=== PATIENT | female | born 2000 | race Caucasian/White ===

== ENCOUNTER 2024-08-17 10:25 | Emergency (ER) | payer OTHER, SELFPAY ==
--- NOTE | ~2024-08-17 | CT_ITS ---
EXAMINATION: CT ABDOMEN AND PELVIS WITH CONTRAST CLINICAL INFORMATION: Right lower quadrant pain. COMPARISON: None available. TECHNIQUE: Multidetector volumetric images were obtained from the superior aspect of the liver through the pubic symphysis following administration 85 mL of Omnipaque 350 intravenous contrast. Sagittal and coronal reformatted images were obtained on the technologist's workstation. Oral contrast: No This CT examination was performed using dose optimization techniques as appropriate, variously including the following: *Automated exposure control *Adjustment of mA and/or kV according to patient size (this includes techniques or standardized protocols for targeted exams where dose is matched to indication/reason for exam; i.e. extremities or head) *Use of iterative reconstruction technique DLP: 480 mGy-cm FINDINGS: LUNG BASES: Patchy right lower lobe interstitial and alveolar infiltrates. Left lung base appears clear. No pleural effusion identified. Heart normal in size. No pericardial effusion. LIVER, GALLBLADDER, AND BILIARY TREE: The liver appears unremarkable in size, shape, and attenuation. No focal hepatic lesion or biliary ductal dilatation is appreciated. Unremarkable appearance of the gallbladder. PANCREAS: Unremarkable SPLEEN: Unremarkable ADRENAL GLANDS: Unremarkable KIDNEYS AND URETERS: The kidneys appear unremarkable in size, shape, and attenuation. No hydronephrosis, hydroureter, or calculi seen. BLADDER: Unremarkable GASTROINTESTINAL TRACT: The small and large bowel appear unremarkable. No diverticulosis. Normal-appearing distal ileum. Vermiform appendix not clearly identified as such; no gross evidence of appendicitis. PERITONEAL CAVITY: Trace fluid in the cul-de-sac, nonspecific. ABDOMINAL WALL: No significant hernia is appreciated. LYMPH NODES: No evidence of adenopathy by size criteria. VASCULAR: Normal variant retroaortic left renal vein. PELVIC VISCERA: Retroverted uterus. OSSEOUS STRUCTURES: Unremarkable CT/CT abdomen pelvis w IV con IMPRESSION: Patchy right lower lobe interstitial and alveolar infiltrates suspicious for pneumonia. Electronically signed by: Carlos Alberto Garcia MD 08/17/2024 01:50 PM [facility]
[2024-08-17 10:38] VITALS: BP 119/71; PULSE 112; RESP 20; TEMP 36.9; O2SAT 97; BMI 25.2
[2024-08-17 11:02] LABS: MANUAL DIFF FLAG NO
[2024-08-17 11:03] LABS: Basophils Percent Auto 0.2 % (0-2); Eosinophils Percent Auto 0.1 % (0-4); Hematocrit 41.3 % (37.0-47.0); Hemoglobin 13.9 g/dl (12.0-16.0); Imm Gran Abs Auto 0.02 X10*3/uL (0.00-0.03); Imm Gran Pct Auto 0.2 % (0.0-0.4); Lymphocytes Percent Auto 11.6 % (20-40); Mean Corpuscular HGB Conc 33.7 g/dl (31.0-35.0); Mean Corpuscular Hemoglobin 28.1 pg (27.0-33.0); Mean Corpuscular Volume 83.4 fL (80.0-98.0); Mean Platelet Volume 10.1 fL (9.4-12.3); Monocytes Absolute Auto 0.5 X10*3/uL (0.1-1.2); Monocytes Percent Auto 5.9 % (2-11); Neutrophils Absolute Auto 6.9 x10*3/uL (2.0-8.3); Platelet Count 223 X10*3/uL (160-400); Red Blood Count 4.95 X10*6/uL (4.20-5.50); Red Cell Distribution Width 13.8 % (11.0-16.0); White Blood Count 8.4 X10*3/uL (4.8-10.8)
--- NOTE | 2024-08-17 11:11 | PC.NURSE ---
pt was seen at urgent care this morning, was negative for covid/flu/strep, also negative for a urine. no chest xr was performed, pt was sent here to also rule out appendicitis.
[2024-08-17 11:24] LABS: Alanine Aminotransferase 19 U/L (0-31); Albumin Level 4.5 g/dL (3.5-5.0); Alkaline Phosphatase 60 U/L (39-117); Anion Gap 13 (12-20); Aspartate Amino Transferase 19 U/L (5-31); Bilirubin Total 0.9 mg/dL (0.0-1.0); Blood Urea Nitrogen 4 mg/dL (9-16); Calcium 9.7 mg/dL (8.4-10.2); Carbon Dioxide 20 mmol/L (22-29); Chloride 105 mmol/L (96-108); Creatinine Clr Calc Pharmacy 133.1; Estimated Glomerular Filt Rate > 60; Glucose Random 122 mg/dL (60-115); Lipase 16 U/L (8-78); Magnesium 1.9 mg/dL (1.6-2.6); Potassium 3.2 mmol/L (3.3-5.1); Sodium 135 mmol/L (135-145); Total Protein 7.4 g/dL (6.5-8.0)
[2024-08-17 11:25] LABS: HCG Quantitative < 2 mIU/mL
[2024-08-17 11:29] LABS: Appearance Urine Clear; Color Urine Yellow; Glucose Urine UA Negative (Negative); Leukocyte Esterase Urine Negative (Negative); Nitrite Urine Negative (Negative); Specific Gravity - Urine <= 1.005 (1.005-1.025); Urine Blood Negative (Negative); Urine Ketones Trace mg/dL (Negative); Urine Protein Negative (Neg-Trace)
[2024-08-17 11:44] LABS: Influenza A PCR NEGATIVE (Negative); Influenza B PCR NEGATIVE (Negative); Resp Syncy Virus RNA Qual PCR NEGATIVE (Negative); SARS COV2 PCR INHOUSE NEGATIVE (Negative)
[2024-08-17] MEDS: ondansetron HCL 4 MG/2 ML VIAL IVPUSH (12:21)
[2024-08-17] MEDS: 0.9 % Sodium Chloride 500 ML IV (12:21)
--- NOTE | 2024-08-17 12:24 | PC.NURSE ---
pt a&ox3, iv inserted, labs previously drawn, ivf started per order, pt previously medicated at urgent care with 800 motrin- provider notified and toradol held, pt medicated for nausea and will go for ct scan.
[2024-08-17] MEDS: iohexoL 350 MG/ML 100 ML INFUS..BTL IV (12:41)
[2024-08-17] MEDS: Amoxicillin 500 MG CAPSULE 1000 MG PO (14:50)
[2024-08-17] MEDS: Azithromycin 500 MG TABLET PO (14:51)
--- NOTE | 2024-08-17 15:05 | ED.ABDPAIN ---
HPI - Abdominal Pain General Chief Complaint: Abdominal Pain Stated Complaint: abd pain Time Seen by Provider: 08/17/24 11:15 Source: patient Limitations: no limitations History of Present Illness ED Provider: Mary Hsu PA-C HPI narrative: 23-year-old female presents with multiple complaints. Patient states she has had cough and cold symptoms, ongoing fevers, sore throat and abdominal pain x5 days. In regard to the abdominal pain the pain is focal over the right lower quadrant is constant, nonradiating. Denies nausea, vomiting diarrhea. Denies dysuria, hematuria, history kidney stones. Denied history of ovarian cysts. Related Data Previous Rx's ?Medication ?Instructions ?Recorded amoxicillin 500 mg capsule 1,000 mg (2 x 500 mg) PO Q8H #60 08/17/24 caps azithromycin 250 mg tablet 250 mg PO DAILY #4 tabs 08/17/24 ondansetron 4 mg disintegrating 4 mg PO Q8H PRN nausea and 08/17/24 tablet vomiting #10 tabs Allergies Allergy/AdvReac Type Severity Reaction Status Date / Time No Known Allergies Allergy Verified 08/17/24 10:42 Review of Systems Review of Systems Yes all other systems are reviewed and are negative Constitutional: Reports fatigue, Reports fever(s) and Reports poor appetite Cardiovascular: Denies chest pain and Denies dyspnea Respiratory: Reports cough, Denies dyspnea and Denies wheezing Gastrointestinal: Reports abdominal pain, Denies diarrhea, Denies nausea and Denies vomiting Genitourinary: Denies dysuria, Denies pelvic pain and Denies vaginal discharge Endocrine: Reports fatigue Allergic/Immunologic: Denies wheezing PMFSH Past Medical History Attestation statement: The following information was validated with the patient. Medical History (Updated 08/17/24 @ 16:21 by SARAH Castro) No pertinent past medical history Social History Social History Smoked in Last 30 Days: No Use of substances other than those prescribed or required for medical reasons: No Advance Directives: No Advance Directives Information Provided: No Patient : No Physical Exam ED Vital Signs: Vital Signs - 24 hr 08/17/24 10:38 Temperature 98.5 F Pulse Rate 112 H Respiratory Rate 20 Blood Pressure 119/71 Pulse Oximetry 97 Oxygen Delivery Method Room Air BMI result Body Mass Index 25.2 Const Other: Awake, ill in appearance Orientation/consciousness: patient oriented x3 Resp Other: Nonlabored respiration Cardio Other: Normal peripheral perfusion GI Other: Abdomen is soft, nondistended, focal tenderness suprapubic and right lower quadrant that is moderate with a mild involuntary guarding, no rebound tenderness, positive psoas sign, negative obturator sign Skin Other: Warm dry no rash Neuro General: patient oriented x3, no focal motor deficits and CN's II-XI intact bilaterally Psych Other: Calm cooperative Medical Decision Making Medical Decision Making MDM Narrative: 23-year-old female presents with multiple complaints. Patient states she has had cough and cold symptoms, ongoing fevers, sore throat and abdominal pain x5 days. In regard to the abdominal pain the pain is focal over the right lower quadrant is constant, nonradiating. Denies nausea, vomiting diarrhea. Denies dysuria, hematuria, history kidney stones. Denied history of ovarian cysts. No relevant chronic issues History: Per patient I have considered the following differential diagnoses: Appendicitis, torsion, renal colic, UTI, viral syndrome, intra-abdominal adenitis Plan: Patient here with various viral related symptoms. In regard to the concurrent abdominal pain, this could simply be abdominal adenitis. Given the distribution of the discomfort, with fevers, I am concerned for appendicitis. We will be obtaining a CT scan. Giving IV fluid and Zofran. She just had ibuprofen. Thought about torsion, however she has had symptoms for 5 days, she does not to be in acute severe discomfort, she does not have a history of ovarian cysts, deferring a transvaginal ultrasound at this time. Thought about renal colic, however the pain is not colicky in nature, and she has no related symptoms. Screening labs including urinalysis and viral panel were obtained from triage. I have independently reviewed the following tests: Labs: No leukocytosis, not anemic, no electrolyte abnormality, urine not infected, viral panel negative CT abdomen and pelvis: CT/CT abdomen pelvis w IV con IMPRESSION: Patchy right lower lobe interstitial and alveolar infiltrates suspicious for pneumonia. Electronically signed by: Carlos Alberto Garcia MD 08/17/2024 01:50 PM [facility] [place] Patient will be treated for community-acquired pneumonia, she has no comorbidities, we will treat with amoxicillin and azithromycin. She can follow up with her primary care provider as needed Lab Data 08/17/24 10:51 08/17/24 10:51 Labs: Lab Results 08/17/24 08/17/24 Range/Units 10:51 11:23 WBC 8.4 (4.8-10.8) X10*3/uL RBC 4.95 (4.20-5.50) X10*6/uL Hgb 13.9 (12.0-16.0) g/dl Hct 41.3 (37.0-47.0) % MCV 83.4 (80.0-98.0) fL MCH 28.1 (27.0-33.0) pg MCHC 33.7 (31.0-35.0) g/dl RDW 13.8 (11.0-16.0) % Plt Count 223 (160-400) X10*3/uL MPV 10.1 (9.4-12.3) fL Immature Gran % (Auto) 0.2 (0.0-0.4) % Neut % (Auto) 82.0 H (45-73) % Lymph % (Auto) 11.6 L (20-40) % [place] % (Auto) 5.9 (2-11) % Eos % (Auto) 0.1 (0-4) % Baso % (Auto) 0.2 (0-2) % Lymph # (Auto) 1.0 L (1.2-4.9) X10*3/uL [place] # (Auto) 0.5 (0.1-1.2) X10*3/uL Eos # (Auto) 0.0 (0.0-0.4) X10*3/uL Baso # (Auto) 0.0 (0.0-0.2) X10*3/uL Abs Immat Gran (auto) 0.02 (0.00-0.03) X10*3/uL Absolute Neuts (auto) 6.9 (2.0-8.3) x10*3/uL Absolute Nucleated RBC 0.000 (0.0-0.012) X10*3/uL Nucleated RBC % (auto) 0.0 (0.0-0.2) /100WBC Sodium 135 (135-145) mmol/L Potassium 3.2 L (3.3-5.1) mmol/L Chloride 105 (96-108) mmol/L Carbon Dioxide 20 L (22-29) mmol/L Anion Gap 13 (12-20) BUN 4 L (9-16) mg/dL Creatinine 0.61 (0.5-1.4) mg/dL Estim Creat Clear Calc 133.1 Estimated GFR > 60 Random Glucose 122 H (60-115) mg/dL Calcium 9.7 (8.4-10.2) mg/dL Magnesium 1.9 (1.6-2.6) mg/dL Total Bilirubin 0.9 (0.0-1.0) mg/dL AST 19 (5-31) U/L ALT 19 (0-31) U/L Alkaline Phosphatase 60 (39-117) U/L Total Protein 7.4 (6.5-8.0) g/dL Albumin 4.5 (3.5-5.0) g/dL Lipase 16 (8-78) U/L Beta HCG, Quant < 2 mIU/mL Urine Color Yellow Urine Appearance Clear Urine pH 6.0 (5.0-9.0) Ur Specific [place] <= 1.005 (1.005-1.025) Urine Protein Negative (Neg-Trace) mg/dL Urine Glucose (UA) Negative (Negative) mg/dL Urine Ketones Trace (Negative) mg/dL Urine Blood Negative (Negative) Urine Nitrite Negative (Negative) Ur Leukocyte Esterase Negative (Negative) Influenza Type A (PCR) NEGATIVE (Negative) Influenza Type B (PCR) NEGATIVE (Negative) RSV RNA Qual (PCR) NEGATIVE (Negative) SARS-CoV-2 RNA (RT-PCR) NEGATIVE (Negative) Medications Administered Discontinued Medications Generic Name Dose Route Start Last Admin Trade Name Kinq PRN Reason Stop Dose Admin Amoxicillin 1,000 mg 08/17/24 14:23 08/17/24 14:50 Amoxicillin 500 Mg Capsule PO 08/17/24 14:24 1,000 mg ONCE ONE Administration Azithromycin 500 mg 08/17/24 14:23 08/17/24 14:51 Azithromycin 500 Mg Tablet PO 08/17/24 14:24 500 mg ONCE ONE Administration Sodium Chloride 500 mls @ 500 mls/hr 08/17/24 12:09 08/17/24 13:21 Ns IV 08/17/24 13:08 Infused .Q1H ONE Infusion Iohexol 100 ml 08/17/24 12:40 08/17/24 12:41 Iohexol 350 Mg/Ml 100 Ml Infus..Btl IV 08/17/24 12:41 85 ml ONCE ONE Administration Ketorolac Tromethamine 15 mg 08/17/24 12:09 08/17/24 12:23 Ketorolac Tromethamine 15 Mg/Ml Vial IVPUSH 08/17/24 12:10 Not Given ONCE ONE Ondansetron HCl 4 mg 08/17/24 12:09 08/17/24 12:21 Ondansetron Hcl 4 Mg/2 Ml Vial IVPUSH 08/17/24 12:10 4 mg ONCE ONE Administration Discharge Plan Discharge Clinical Impression: Community acquired pneumonia Patient Disposition: Home, Self-Care Instructions: Community Acquired Pneumonia (ED) Additional Instructions: You were found to have pneumonia on your CT scan of the abdomen, there was no acute abnormality noted. You also had no lab abnormalities. Take the amoxicillin and the azithromycin as directed, these are antibiotics to treat your pneumonia. I am sending you with a prescription for Zofran, this is an antinausea medicine, use as needed. Continue to use [id number] Tylenol alternated with [id number] ibuprofen to manage your fevers. Follow up with your primary care provider as needed. Prescriptions: New amoxicillin 500 mg capsule 1,000 mg PO Q8H Qty: 60 0RF azithromycin 250 mg tablet 250 mg PO DAILY Qty: 4 0RF ondansetron 4 mg tablet,disintegrating 4 mg PO Q8H PRN (Reason: nausea and vomiting) Qty: 10 0RF Stand Alone Forms: Work/School Release Print Language: Latvian
[2024-08-17 16:00] VITALS: BP 115/64; PULSE 90; RESP 16; TEMP 36.8; O2SAT 97
--- NOTE | 2024-08-17 17:16 | PC.NURSE ---
pt requested po trial will discharge after she eats saltines and gingerale
[2024-08-17 17:55] VITALS: BP 118/66; PULSE 96; RESP 16; TEMP 36.8; O2SAT 96
== END 2024-08-17 17:55 | disposition home or self-care (01) ==
PROVIDERS: Emergency Provider Student in an Organized Health Care Education/Training Program; PCP Nurse Practitioner Family
DX: J18.9 Pneumonia, unspecified organism (principal); R10.31 Right lower quadrant pain; R05.9 Cough, unspecified; J02.9 Acute pharyngitis, unspecified
CPT/HCPCS: 0241U; 74177; 80053; 81003; 83690; 83735; 84702; 85025; 96361; 96374; 99284; 99285; J2405; Q9967

== ENCOUNTER 2024-10-05 17:31 | Emergency (ER) | payer OTHER, SELFPAY ==
--- NOTE | ~2024-10-05 | XR_ITS ---
CLINICAL HISTORY: chest pain Two views of the chest. COMPARISON: None FINDINGS: Normal heart and mediastinal contours. No consolidation. No pleural effusion or pneumothorax. No fracture identified. IMPRESSION: 1. No acute cardiopulmonary abnormality. This document has been electronically signed by: Buck Powers MD on 10/05/2024 18:46:48
--- NOTE | 2024-10-05 17:41 | ED_ITS ---
HPI - General Adult General Chief complaint: Abdominal Pain Stated complaint: abd/back pain Time Seen by Provider: 10/05/24 23:07 Source: patient Mode of arrival: ambulatory Limitations: no limitations History of Present Illness ED Provider: HPI narrative: Patient comes here with complaining of lower abdominal pain started earlier today having irregular menstrual. Patient is seen at urgent care center for upper respiratory symptoms influenza was negative and started on prednisone today patient's RSV is positive patient denied any significant cough or shortness a breath saturating 100% at room air denies any urinary symptoms at this time patient denied any significant respiratory symptoms main concern was lower abdominal discomfort and vaginal bleed Related Data Previous Rx's ?Medication ?Instructions ?Recorded amoxicillin 500 mg capsule 1,000 mg (2 x 500 mg) PO Q8H #60 08/17/24 caps azithromycin 250 mg tablet 250 mg PO DAILY #4 tabs 08/17/24 ondansetron 4 mg disintegrating 4 mg PO Q8H PRN nausea and 08/17/24 tablet vomiting #10 tabs ibuprofen 600 mg tablet 600 mg PO Q6H PRN fever or pain 10/06/24 #30 tabs Allergies Allergy/AdvReac Type Severity Reaction Status Date / Time No Known Allergies Allergy Verified 10/05/24 17:50 Review of Systems 2 Review of Systems: Yes all other systems are reviewed and are negative [facility] Past Medical History Medical History No pertinent past medical history Social History Social History Smoked in Last 30 Days: No Use of substances other than those prescribed or required for medical reasons: No Advance Directives: No Advance Directives Information Provided: Yes Do you have a plan to hurt others: No Plan Physical Exam ED Vital Signs: Vital Signs - 24 hr 10/05/24 17:46 10/05/24 22:13 Temperature 98.1 F Pulse Rate 69 62 Respiratory Rate 18 16 Blood Pressure 143/94 H 115/70 Pulse Oximetry 97 100 Oxygen Delivery Method Room Air Room Air BMI result Body Mass Index 24.4 Appearance: Alert. Oriented X3. No acute distress. Eyes: PERRLA, No Nystagmus ENT: Pharynx normal. Oral Mucosa moist Neck: Normal inspection. Neck supple. CVS: Normal heart rate and rhythm. Pulses normal. Respiratory: No respiratory distress. Equal air entry bilateral, no wheezing/rales/rhonchi Abdomen: Soft and mild suprapubic discomfort Bowel sounds are present, no mass palpable, no CVA tenderness Skin: Skin warm and dry. Normal skin color. Normal skin turgor. Extremities: No lower extremity edema. No calf tenderness Neuro: Oriented X 3. No motor deficit. No sensory deficit.No cerebellar signs , cranial nerves II-XII intact Course Course Course Narrative: This is a rapid medical exam performed by Cassidy Cardenas NP: Additional HPI, ROS, PE not included below will be deferred to primary provider. Patient is a 24-year-old female presenting with multiple complaints. Recently presented to urgent care where she was treated with prednisone for URI. States she now has pain to left upper back, and in front under breasts. Had PNA mid august. Also reports abdominal cramping, bloating, period irregular with stringy discharge. Slight pain with urination. She is sexually active. Plan: labs, UA, pelvic swabs ordered, cxr Medications Administered Discontinued Medications Generic Name Dose Route Start Last Admin Trade Name Freq PRN Reason Stop Dose Admin Ibuprofen 600 mg 10/05/24 23:44 10/06/24 00:00 Ibuprofen 600 Mg Tablet PO 10/05/24 23:45 600 mg ONCE ONE Administration Medical Decision Making Lab Data [facility] Lab Attestation statement: I reviewed the patient's lab results. 10/05/24 18:13 10/05/24 18:13 Labs: Lab Results 10/05/24 10/05/24 10/06/24 Range/Units 18:13 22:16 00:03 WBC 6.2 (4.8-10.8) X10*3/uL RBC 4.74 (4.20-5.50) X10*6/uL Hgb 13.5 (12.0-16.0) g/dl Hct 41.2 (37.0-47.0) % MCV 86.9 (80.0-98.0) fL MCH 28.5 (27.0-33.0) pg MCHC 32.8 (31.0-35.0) g/dl RDW 14.1 (11.0-16.0) % Plt Count 285 D (160-400) X10*3/uL MPV 9.9 (9.4-12.3) fL Immature Gran % (Auto) 0.2 (0.0-0.4) % Neut % (Auto) 45.6 (45-73) % Lymph % (Auto) 45.5 H (20-40) % [place] % (Auto) 7.1 (2-11) % Eos % (Auto) 1.1 (0-4) % Baso % (Auto) 0.5 (0-2) % Lymph # (Auto) 2.8 (1.2-4.9) X10*3/uL [place] # (Auto) 0.4 (0.1-1.2) X10*3/uL Eos # (Auto) 0.1 (0.0-0.4) X10*3/uL Baso # (Auto) 0.0 (0.0-0.2) X10*3/uL Abs Immat Gran (auto) 0.01 (0.00-0.03) X10*3/uL Absolute Neuts (auto) 2.8 (2.0-8.3) x10*3/uL Absolute Nucleated RBC 0.000 (0.0-0.012) X10*3/uL Nucleated RBC % (auto) 0.0 (0.0-0.2) /100WBC PT 12.3 (10.9-12.4) SEC INR 1.1 (0.9-1.1) Sodium 141 (135-145) mmol/L Potassium 3.5 (3.3-5.1) mmol/L Chloride 109 H (96-108) mmol/L Carbon Dioxide 26 (22-29) mmol/L Anion Gap 10 L (12-20) BUN 9 (9-16) mg/dL Creatinine 0.66 (0.5-1.4) mg/dL Estim Creat Clear Calc 117.2 Estimated GFR > 60 Random Glucose 99 (60-115) mg/dL Calcium 9.3 (8.4-10.2) mg/dL Total Bilirubin 0.8 (0.0-1.0) mg/dL AST 17 (5-31) U/L ALT 17 (0-31) U/L Alkaline Phosphatase 58 (39-117) U/L Total Protein 7.2 (6.5-8.0) g/dL Albumin 4.7 (3.5-5.0) g/dL Beta HCG, Quant < 2 mIU/mL Urine Color Yellow Urine Appearance Clear Urine pH 5.5 (5.0-9.0) Ur Specific [place] 1.015 (1.005-1.025) Urine Protein Negative (Neg-Trace) mg/dL Urine Glucose (UA) Negative (Negative) mg/dL Urine Ketones Negative (Negative) mg/dL Urine Blood Negative (Negative) Urine Nitrite Negative (Negative) Ur Leukocyte Esterase Negative (Negative) Chlam trachomat DNA PCR NOT DETECTED (Not Detect.) Influenza Type A (PCR) NEGATIVE (Negative) Influenza Type B (PCR) NEGATIVE (Negative) N.gonorrhoeae DNA (PCR) NOT DETECTED (Not Detect.) RSV RNA Qual (PCR) POSITIVE A (Negative) SARS-CoV-2 RNA (RT-PCR) NEGATIVE (Negative) Discharge Plan Discharge Clinical Impression: Dysfunctional uterine bleeding, Respiratory syncytial virus (RSV) Patient Disposition: Home, Self-Care Instructions: Dysfunctional Uterine Bleeding (ED), Respiratory Syncytial Virus (ED) Additional Instructions: Continue medications as prescribed Ibuprofen for pain 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
[2024-10-05 17:46] VITALS: BP 143/94; PULSE 69; RESP 18; TEMP 36.7; O2SAT 97; BMI 24.4
--- NOTE | 2024-10-05 17:50 | ECG_ITS ---
Test Reason : CP Blood Pressure : / mmHG Vent. Rate : 072 BPM Atrial Rate : 072 BPM P-R Int : 158 ms QRS Dur : 100 ms QT Int : 372 ms P-R-T Axes : 076 059 028 degrees QTc Int : 407 ms Normal sinus rhythm Possible Left atrial enlargement Borderline ECG No previous ECGs available Referred By: Janelle Cardenas Electronically Signed By:DANII JUAREZ MD
[2024-10-05 18:18] LABS: Basophils Percent Auto 0.5 % (0-2); Eosinophils Absolute Auto 0.1 X10*3/uL (0.0-0.4); Eosinophils Percent Auto 1.1 % (0-4); Hematocrit 41.2 % (37.0-47.0); Hemoglobin 13.5 g/dl (12.0-16.0); Imm Gran Abs Auto 0.01 X10*3/uL (0.00-0.03); Imm Gran Pct Auto 0.2 % (0.0-0.4); Lymphocytes Absolute Auto 2.8 X10*3/uL (1.2-4.9); Lymphocytes Percent Auto 45.5 % (20-40); MANUAL DIFF FLAG NO; Mean Corpuscular HGB Conc 32.8 g/dl (31.0-35.0); Mean Corpuscular Hemoglobin 28.5 pg (27.0-33.0); Mean Corpuscular Volume 86.9 fL (80.0-98.0); Mean Platelet Volume 9.9 fL (9.4-12.3); Monocytes Absolute Auto 0.4 X10*3/uL (0.1-1.2); Monocytes Percent Auto 7.1 % (2-11); Neutrophils Absolute Auto 2.8 x10*3/uL (2.0-8.3); Neutrophils Percent Auto 45.6 % (45-73); Platelet Count 285 X10*3/uL (160-400); Red Blood Count 4.74 X10*6/uL (4.20-5.50); Red Cell Distribution Width 14.1 % (11.0-16.0); White Blood Count 6.2 X10*3/uL (4.8-10.8)
[2024-10-05 18:23] LABS: INTERNATIONAL NORM RATIO 1.1 (0.9-1.1); Prothrombin Time 12.3 SEC (10.9-12.4)
[2024-10-05 18:42] LABS: Alanine Aminotransferase 17 U/L (0-31); Albumin Level 4.7 g/dL (3.5-5.0); Alkaline Phosphatase 58 U/L (39-117); Anion Gap 10 (12-20); Aspartate Amino Transferase 17 U/L (5-31); Bilirubin Total 0.8 mg/dL (0.0-1.0); Blood Urea Nitrogen 9 mg/dL (9-16); Calcium 9.3 mg/dL (8.4-10.2); Carbon Dioxide 26 mmol/L (22-29); Chloride 109 mmol/L (96-108); Creatinine Clr Calc Pharmacy 117.2; Estimated Glomerular Filt Rate > 60; Glucose Random 99 mg/dL (60-115); Potassium 3.5 mmol/L (3.3-5.1); Sodium 141 mmol/L (135-145); Total Protein 7.2 g/dL (6.5-8.0)
[2024-10-05 18:44] LABS: HCG Quantitative < 2 mIU/mL
[2024-10-05 19:57] LABS: Influenza A PCR NEGATIVE (Negative); Influenza B PCR NEGATIVE (Negative); Resp Syncy Virus RNA Qual PCR POSITIVE (Negative); SARS COV2 PCR INHOUSE NEGATIVE (Negative)
[2024-10-05 22:13] VITALS: BP 115/70; PULSE 62; RESP 16; O2SAT 100
--- NOTE | 2024-10-05 22:23 | PC.NURSE ---
Pt feeling generally unwell, abd pain, cough, fatigue. Informed patient she tested positive for RSV. Patient supplied dirty urine sample, given UA cup. Resting quietly on stretcher at this time.
[2024-10-06] MEDS: Ibuprofen 600 MG TABLET PO
[2024-10-06 00:16] LABS: Appearance Urine Clear; Color Urine Yellow; Glucose Urine UA Negative (Negative); Leukocyte Esterase Urine Negative (Negative); Nitrite Urine Negative (Negative); PH 5.5 (5.0-9.0); Specific Gravity - Urine 1.015 (1.005-1.025); Urine Blood Negative (Negative); Urine Ketones Negative (Negative); Urine Protein Negative (Neg-Trace)
[2024-10-06 01:00] VITALS: BP 115/70; PULSE 62; RESP 16; TEMP 36.7; O2SAT 100
[2024-10-06 05:10] LABS: CT PCR NOT DETECTED (Not Detect.); NG PCR NOT DETECTED (Not Detect.)
== END 2024-10-06 01:00 | disposition home or self-care (01) ==
PROVIDERS: Registered Nurse Emergency; Emergency Provider Internal Medicine; PCP Nurse Practitioner Family
DX: N93.8 Other specified abnormal uterine and vaginal bleeding (principal); R10.30 Lower abdominal pain, unspecified; J06.9 Acute upper respiratory infection, unspecified; B97.4 Respiratory syncytial virus as the cause of diseases classified elsewhere; Z03.818 Encounter for observation for suspected exposure to other biological agents ruled out
CPT/HCPCS: 0241U; 71046; 80053; 81003; 84702; 85025; 85610; 87491; 87591; 93005; 99283; 99285

== ENCOUNTER → 2024-10-05 17:50 | Outpatient (BNV) | payer OTHER, SELFPAY | PROVIDERS: PCP Nurse Practitioner Family; Visit Provider Radiology Diagnostic Radiology | DX: R07.9 Chest pain, unspecified (principal) | CPT/HCPCS: 71046 ==

== ENCOUNTER → 2024-10-05 17:50 | Outpatient (BNV) | payer OTHER, SELFPAY | PROVIDERS: Emergency Provider Internal Medicine; PCP Nurse Practitioner Family; Visit Provider Internal Medicine Cardiovascular Disease | DX: R07.9 Chest pain, unspecified (principal) | CPT/HCPCS: 93010 ==